=== PATIENT | male | born 1995 | race Caucasian/White ===

== ENCOUNTER 2018-04-14 14:47 | Emergency (ER) | payer OTHER ==
[~2018-04-14] VITALS: Ht 188 cm; Wt 83.9 kg
[2018-04-14] MEDS ORDERED: Prednisone20 MG PO (15:36)
[2018-04-14] MEDS ORDERED: EPIPEN 2-P0.3 MG/0.3 IM (15:36)
== END 2018-04-14 15:53 | disposition home or self-care (01) ==
LOC: ER 14:47
DX: T63.441A Toxic effect of venom of bees, accidental (unintentional), initial encounter (principal); Z91.030 Bee allergy status
CPT/HCPCS: 96374; 99284-25; J3490